=== PATIENT | female | born 1960 | race Two or more races ===

== ENCOUNTER 2016-08-15 12:08 | Emergency (ER) | payer OTHER ==
[~2016-08-15] VITALS: Ht 162.6 cm; Wt 113.4 kg
[2016-08-15] MEDS ORDERED: METFORMIN HCL500 M1 ORAL (12:25)
[2016-08-15] MEDS ORDERED: SIMVASTATIN10 MG ORAL (12:25)
[2016-08-15] MEDS ORDERED: GLIPIZIDE5 MG ORAL (12:25)
[2016-08-15] MEDS ORDERED: ENALAPRIL MALE2.5 MG ORAL (12:25)
[2016-08-15] MEDS ORDERED: Cyclobenzaprine 10mg Tab ORAL ONE (12:45)
[2016-08-15 13:32] VITALS: BP 122/76
[2016-08-15 13:59] LABS: ANION GAP 14 (5-15); CALCIUM 9.4 mg/dL (8.6-10.2); CARBON DIOXIDE 27 mEQ/L (20-30); CHLORIDE 99 mEQ/L (98-107); CREATININE 0.6 mg/dL (0.5-0.9); GLOMERULAR FILTRATION RATE > 60 mL/min (>60); HEMOLYSIS 4; POTASSIUM 4.3 mEQ/L (3.4-4.9); SODIUM 140 mEQ/L (135-145)
[2016-08-15] MEDS ORDERED: IBUPROFEN600 MG ORAL (15:32)
[2016-08-15] MEDS ORDERED: CYCLOBENZAPRINE10 MG ORAL (15:32)
[2016-08-15 16:04] VITALS: BP 120/79
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
--- NOTE | 2016-08-18 10:49 | Diagnostic Imaging Report ---
Indication: PAIN Technique: 3 views of the cervical spine Comparison: none Findings: There is degenerative disc narrowing at C6-7 and C7-T1. No prevertebral soft tissue swelling. Minimal anterior offset of C4 on C5 and of C5 on C6. No acute fractures. No dislocations. Total body heights are preserved. Impression: No acute bony trauma Degenerative changes as described
--- NOTE | 2016-08-18 10:49 | Diagnostic Imaging Report ---
Clinical Indication: Abdominal pain Technique: No oral contrast utilized, per emergency room physician request IV administration nonionic contrast. Venous phase spiral acquisition obtained through the abdomen and pelvis. Multiplanar reconstructions were generated. Total dose length product 1065 mGycm. CTDIvol(s) mGy Comparison: None Findings: Normal appendix. There is distal colonic diverticulosis. No findings to suggest acute diverticulitis. No free or loculated intraperitoneal air or fluid. No small bowel distention. The distal esophagus, stomach, duodenum are unremarkable. The liver, gallbladder, bile ducts, pancreas, spleen, adrenals, kidneys are unremarkable. No pelvic mass or adenopathy. However, both ovarian veins are mildly dilated, and there are slightly prominent paraovarian and uterine wall varices. The included lung bases are clear except for compressive dependent atelectatic changes.. The heart is mildly enlarged. There is no evidence of significant soft tissue contusion. The bones are unremarkable. Impression: No acute abnormality. Specifically, no evidence of acute bony or solid organ injury. Mildly dilated bilateral ovarian veins and slightly prominent bilateral paraovarian varices. This is suggestive of ovarian venous insufficiency, and could indicate pelvic congestion syndrome. Correlate with clinical history and findings Mild cardiomegaly The CT scanner at [facility] is accredited by the [employer] and the scans are performed using protocols designed to limit radiation exposure to as low as reasonably achievable to attain images of sufficient resolution adequate for diagnostic evaluation.
== END 2016-08-15 16:22 | disposition home or self-care (01) ==
LOC: EMR 12:41
DX: S30.1XXA Contusion of abdominal wall, initial encounter (principal); S16.1XXA Strain of muscle, fascia and tendon at neck level, initial encounter; E11.9 Type 2 diabetes mellitus without complications; V43.62XA Car passenger injured in collision with other type car in traffic accident, initial encounter; Y92.410 Unspecified street and highway as the place of occurrence of the external cause; Y99.8 Other external cause status
CPT/HCPCS: 36415; 72040; 74177; 80048; 99284; Q9967